=== PATIENT | male | born 1945 | race Caucasian/White ===

== ENCOUNTER 2017-03-20 09:23 | Inpatient (IN) | payer MEDICARE, OTHER ==
[2017-03-14 09:35] VITALS: BMI 29.0
--- NOTE | 2017-03-14 10:02 | PAT Medication Instructions ---
Service Date Mar 14, 2017. Current Home Medication List Ipratropium-Albuterol (Combivent Respimat), 1 PUFFS INH QID PRN for Shortness of Breath Multivitamin (Multivitamin), 1 TAB PO QAM Tiotropium Horicon (Spiriva Respimat), 1 PUFF INH BID Medication Instructions For Your Scheduled Surgery - Hold the following medications the morning of surgery: Multivitamin (Multivitamin), 1 TAB PO QAM - Take the following medications the morning of surgery with a sip of water: Tiotropium Horicon (Spiriva Respimat), 1 PUFF INH BID Ipratropium-Albuterol (Combivent Respimat), 1 PUFFS INH QID PRN for Shortness of Breath (BRING WITH YOU TO THE HOSPITAL THE MORNING OF THE SURGERY) - Take the following medications as scheduled the night before surgery: Tiotropium Horicon (Spiriva Respimat), 1 PUFF INH BID If you have any questions please call us at [phone] or [phone] or [phone]
--- NOTE | 2017-03-14 10:58 | DIAGNOSTIC IMAGING REPORT ---
CHEST PREADMISSION(PA/LAT) HISTORY: Preop. COMPARISON: None. FINDINGS: No pneumothorax. Small left pleural effusion. Left pleural calcifications. The heart is normal in size. Diffuse reticulonodular interstitial thickening. This is likely chronic. Surgical clips at the base of the neck. IMPRESSION: 1. Small left pleural effusion. 2. Diffuse reticulonodular interstitial thickening, left greater than right. This may be chronic. Comparison to old studies would be helpful. 3. Left pleural calcifications. Electronically signed by: Jatin Castillo M.D. 03/14/2017 10:57 AM Dictated Date/Time: 03/14/2017 10:55 AM
[2017-03-14 11:10] LABS: BASO % 0.7 %; BASO ABS # 0.07 K/uL (0-0.2); COMPLETE YES; EOS % 3.9 %; HEMATOCRIT 50.8 % (42-52); IG% 0.3 %; LYMPH % 18.7 %; LYMPH ABS # 1.95 K/uL (1.2-3.4); MEAN CELL VOLUME 89.1 fL (80-100); MEAN CORPUSCULAR HEMOGLOBIN 29.5 pg (25-34); MEAN CORPUSCULAR HGB CONC 33.1 g/dl (32-36); MEAN PLATELET VOLUME 10.7 fL (7.4-10.4); MONO % 7.6 %; NEUT % 68.8 %; PLATELET COUNT 288 K/uL (130-400); WHITE BLOOD COUNT 10.45 K/uL (4.8-10.8)
[2017-03-14 11:13] LABS: URINE APPEARANCE CLEAR (CLEAR); URINE BILIRUBIN NEG (NEG); URINE COLOR YELLOW; URINE NITRITE NEG (NEG); URINE PH 5.5 (4.5-7.5); URINE SPECIFIC GRAVITY 1.016 (1.000-1.030); UROBILINOGEN NEG (NEG); ZZUR CULT IF INDIC CLEAN CATCH NO
[2017-03-14 11:15] LABS: MANUAL MICROSCOPIC REQUIRED? NO; REVIEW REQ? NO
[2017-03-14 11:21] LABS: BUN/CREATININE RATIO 17.5 (10-20); CREATININE 0.76 mg/dl (0.60-1.40); POTASSIUM 4.8 mmol/L (3.5-5.1)
[2017-03-14 11:23] LABS: INR 0.9 (0.9-1.1); PARTIAL THROMBOPLASTIN RATIO 1.1; PROTHROMBIN TIME (PATIENT) 10.1 SECONDS (9.0-12.0)
--- NOTE | 2017-03-19 10:29 | HISTORY & PHYSICAL EXAMINATION ---
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 After failing attempts at conservative management including physical therapy, anti-inflammatories, relative rest, activity modification, presents for left total knee arthroplasty. He has a varus alignment, subchondral sclerosis, osteophyte formation and tricompartmental degenerative joint disease. PAST MEDICAL HISTORY: Significant for emphysema, chronic cough. He denies history of hypertension or hypercholesterolemia. PAST SURGICAL HISTORY: Significant for tonsillectomy, appendectomy, thyroidectomy, bilateral knee arthroscopies, and right total knee arthroplasty. ALLERGIES: None. MEDICATIONS: Include Spiriva 2.5 mcg twice daily, Combivent 20 mcg 2-4 times daily. FAMILY HISTORY: Otherwise unremarkable and noncontributory. SOCIAL HISTORY: The patient denies history of alcohol use, smoking or recreational drug use. PMH Otherwise unremarkable. See history of present illness for pertinent positives. PHYSICAL EXAMINATION: GENERAL: Reveals a very pleasant 71-year-old white male with severe endstage DJD of his left knee and presents for left total knee arthroplasty. He has already undergone successful right total knee arthroplasty. HEENT: Otherwise unremarkable, atraumatic, normocephalic. HEART: Regular at 74 beats per minute. LUNGS: Clear without rales, rhonchi, or wheezes noted. ABDOMEN: Soft, nontender, nondistended. Bowel sounds are present in all 4 quadrants. RECTAL: No rectal examination was performed. MUSCULOSKELETAL: Consists that a severe end-stage tricompartmental degenerative joint disease, nonresponsive to conservative therapy. IMPRESSION AND PLAN: The patient presents for total knee arthroplasty, postoperative pain management, DVT prophylaxis and postoperative pain management. MTDD
[~2017-03-20] VITALS: Ht 177.8 cm; Wt 92.8 kg
[2017-03-20] VITALS (7 sets, daily range): BP systolic 137–173; BP diastolic 68–91; PULSE 58–76; TEMP 36.3–36.8; O2SAT 95–98; Ht 177.8 cm; Wt 92.8 kg
--- NOTE | 2017-03-20 06:59 | History & Physical Bridge Note ---
H&P Re-Evaluation Bridge Note: I have examined the patient, reviewed the History & Physical and in the interval since the performance of the History & Physical I have noted the following changes of clinical significance: No changes noted
[~2017-03-20 09:23] MED LIST: BUPIVACAINE 0.25% 30 ML VIAL ONE; BUPIVACAINE 0.5 % 5 MG/1 ML PF 10ML VIAL ONE; CEFAZOLIN 2000 MG/60 ML D5W 60 ML IV SCH; IPRA1AER2 INH; LACTATED RINGER'S 1000ML IV SCH; MULT-506 PO; ROPIVACAINE 5MG/ML 30 ML 150 MG, BUPIVACAINE/EPINEPHR 0.5% MPF 30 ML, KETOROLAC TROMETH... INFIL SCH; TIOT1SPR INH
[2017-03-20] MEDS ORDERED: PROPOFOL IV EMULSION 10 MG/ML 20 ML VIAL IV ONE (10:07)
[2017-03-20] MEDS ORDERED: MIDAZOLAM HCL 1 MG/ML 2ML VIAL ONE ×2 (10:07→14:06)
[2017-03-20] MEDS ORDERED: LIDOCAINE HCL 2% 2 ML VIAL (20MG/ML) ONE (10:07)
[2017-03-20] MEDS ORDERED: FENTANYL CITRATE INJ 50 MCG/1 ML 2 ML VIAL ONE (10:07)
[2017-03-20] MEDS ORDERED: NURSING VERBAL MED ORDER STA (10:16)
[2017-03-20] MEDS ORDERED: BACITRACIN 50000 UNIT VIAL ONE (11:09)
[2017-03-20] MEDS ORDERED: POVIDONE-IODINE OP SOLN 30 ML BTL ONE (11:09)
[2017-03-20] MEDS ORDERED: ORTHO JOINT ANESTHETIC ONE (11:09)
[2017-03-20] MEDS ORDERED: EpHEDrine SULFATE INJ 50 MG/ML AMP IV PRN (11:15)
[2017-03-20] MEDS ORDERED: ATROPINE SULFATE 0.1 MG/ML 5ML SYR IV PRN (11:15)
[2017-03-20] MEDS ORDERED: KETOROLAC TROMETHAMINE 30 MG/ML VIAL IV. PRN (11:15)
[2017-03-20] MEDS ORDERED: PHENYLEPHRINE 100MCG/ML 5ML SYR IV PRN (11:15)
[2017-03-20] MEDS ORDERED: ONDANSETRON INJ 2 MG/ML 2 ML VIAL IV PRN ×2 (11:15→13:15)
[2017-03-20] MEDS ORDERED: HYDROmorphone INJ 2 MG/ML SYR/VIAL IV PRN (11:15)
[2017-03-20] MEDS: TRANEXAMIC ACID INJ 1,000 MG in SODIUM CHLORIDE 0.9% 100ML 100 ML IV SCH ×2 (11:17→15:04)
--- NOTE | 2017-03-20 12:39 | [facility] Operative Report ---
Operative Report Operative Date Mar 20, 2017. Pre-Operative Diagnosis Left Knee End-Stage Degenerative Joint Disease Post-Operative Diagnosis Left Knee End-Stage Degenerative Joint Disease Procedure(s) Performed Left Total Knee Arthroplasty utilizing Funez & Nephew journey 2 nonlocked total knee arthroplasty size 8 femur 7 tibia 11 Leighann 38 oval patella Surgeon Grover Diver Tender Surgeon(s) Jose Luis Becerril PA-C Estimated Blood Loss 5cc Findings Severe end-stage DJD left knee with varus alignment osteophyte formation subchondral cysts Specimens A: Left Knee Bone and Tissue Complication(s) None Disposition Recovery Room / PACU Indications Patient's failed attempts at conservative management including physical therapy anti-inflammatories relative rest activity modification presents for total knee arthroplasty thorough discussion regarding risk and complications Description of Procedure After proper prepping and draping of the left lower extremity anterior midline incision was made over the region of the extensor extensor mechanism after meticulous hemostasis was obtained and maintained in subcutaneous tissues a medial parapatellar incision was made The patella was subluxed lateralward the medial lateral gutter were cleaned from any hypertrophic synovitis and scar tissue of the distal femoral block was placed and the distal femoral osteotomy cut was made subsequently the chamfers anterior and posterior osteotomy cuts were made utilizing the 4-in-1 block the tibia was subsequently subluxed anteriorward medial and ateral meniscal remnants were excised in their entirety remnants of the anterior and posterior cruciate ligaments were excised in their entirety excellent exposure of the proximal tibia was obtained the tibial osteotomy guide was placed on the proximal tibial osteotomy cut was made once again the knee was irrigated with copious amounts of sterile saline solution the patella was subsequently everted lateralward thickened scar tissue around the patella was removed the patella was subsequently cut utilizing a freehand technique and was drilled prepared for final preparation and placement of patella socially flexion-extension gaps were checked and the equal and symmetric trials were placed to the appropriate femoral and tibial trials with poly-spacer being placed for equal flexion and extension gaps and full range of motion including extension to 0 and flexion to 140 the trial components after having been taken to recovery range of motion was subsequently removed meticulous hemostasis was obtained and maintained subsequently a knee block injection of joint cocktail including ropivacaine 0.5% 150 mg. Bupivacaine 0.5 % epinephrine 1-200,030 mL's toradol 30 mg dexamethasone 4 mg ketamine 10 mg clonidine 100 micrograms normal saline solution 30 mg was infiltrated into the soft tissues of the posterior knee medial lateral gutters and periosteal synovium special attention was paid to protect neurovascular structures at all times subsequently trial components having been removed the knee was irrigated with sterile saline solution. debris was removed the proximal tibia was subsequently prepared and was made ready for the placement of the tibial component tibial component was also cemented and tamped into position the femoral component was subsequently placed and cemented in the position the patellar component was subsequently cemented in position because hemostasis once again obtained and maintained wound having been thoroughly irrigated with debridement and debridement lavage was performed as well as a medial parapatellar incision closed with #1 Vicryl in interrupted fashion subcutaneous was closed with #2 Vicryl skin was closed with skin clips. PA-C was necessary for prepping and drapping as well as wound closure of deep fascia Sub cutaneous tissue and skin and was necessary for the case. A sterile compressive dressing was placed patient was taken to recovery in stable condition of report dictated by Grover I attest to the content of the Intraoperative Record and any orders documented therein. Any exceptions are noted below. I attest to the content of the Intraoperative Record and any orders documented therein. Any exceptions are noted below.
[2017-03-20] MEDS ORDERED: TRAMADOL HCL 50 MG TAB PO PRN (13:15)
[2017-03-20] MEDS ORDERED: MAGNESIUM HYDROXIDE SUSP 30 ML UDC PO PRN (13:15)
[2017-03-20] MEDS ORDERED: ALUMINUM/MAGNESIUM/SIMETH (MAALOX MAX) 30 ML UDC PO PRN (13:15)
[2017-03-20] MEDS ORDERED: MoRPHine SULFATE 2 MG/ML CARP IV PRN (13:15)
[2017-03-20] MEDS ORDERED: ZOLPIDEM TARTRATE 5 MG TAB PO PRN (13:15)
[2017-03-20] MEDS ORDERED: SOD PHOSPHATE/SOD BIPHOSPHATE ENEMA 132 ML BTL PR PRN (13:15)
[2017-03-20] MEDS ORDERED: BISACODYL 10 MG SUPP PR PRN (13:15)
[2017-03-20] MEDS ORDERED: MoRPHine SULFATE 4 MG/ML 1 ML CARP\\VIAL IV PRN (13:45)
[2017-03-20] MEDS ORDERED: MoRPHine SULFATE 10 MG/ML CARP/VIAL IV PRN (13:45)
--- NOTE | 2017-03-20 13:52 | DIAGNOSTIC IMAGING REPORT ---
LEFT KNEE 2 VIEWS History: Left total knee arthroplasty. Degenerative arthritis. Postop. FINDINGS: The patient is status post a left total knee arthroplasty. The hardware is intact. No fracture or dislocation. Surgical drains are in place. IMPRESSION: Left total knee arthroplasty. No evidence for hardware complication. Electronically signed by: Jatin Castillo M.D. 03/20/2017 1:51 PM Dictated Date/Time: 03/20/2017 1:50 PM
[2017-03-20] MEDS ORDERED: KETOROLAC TROMETHAMINE 15 MG/ML VIAL IV. PRN (14:00)
--- NOTE | 2017-03-20 14:24 | Anesthesiology Progress Note ---
Anesthesia Post Op Note Date & Time Mar 20, 2017 at 14:24 Vital Signs Pain Intensity: 0 Vital Signs Past 12 Hours Date Time Temp Pulse Resp B/P (MAP) Pulse Ox O2 Delivery O2 Flow Rate FiO2 03/20/17 13:55 36.9 72 16 133/72 96 Nasal Cannula 2 03/20/17 13:45 36.9 65 16 134/78 97 Nasal Cannula 2 03/20/17 13:35 36.9 74 16 123/72 100 Nasal Cannula 2 03/20/17 13:25 67 16 139/76 100 Oxymask 10 03/20/17 13:15 36.5 81 16 134/73 96 Oxymask 10 03/20/17 09:50 36.8 76 20 173/91 97 Room Air Notes Mental Status: alert / awake / arousable, participated in evaluation Pt Amnestic to Procedure: Yes Nausea / Vomiting: adequately controlled Pain: adequately controlled Airway Patency, RR, SpO2: stable & adequate BP & HR: stable & adequate Hydration State: stable & adequate Anesthetic Complications: no major complications apparent
[2017-03-20] MEDS: D5W AND 1/2NSS + 20MEQ KCL 1,000 ML IV SCH (15:33)
[2017-03-20] MEDS: ACETAMINOPHEN 500 MG TAB PO SCH ×2 (15:33→22:17)
[2017-03-20] MEDS: TIOTROPIUM BROMIDE INH SCH (19:48)
[2017-03-20] MEDS: CEFAZOLIN IV 2,000 MG in DEXTROSE 5% 50ML 50 ML IV SCH (20:44)
[2017-03-20] MEDS: ASPIRIN 81 MG ECTAB PO SCH (20:44)
[2017-03-20] MEDS: DOCUSATE SODIUM 100 MG CAP PO SCH (20:45)
[2017-03-20] MEDS: SENNA 8.6 MG TAB PO SCH (20:45)
[2017-03-20] MEDS ORDERED: TIOTROPIUM BROMIDE INH SCH (21:00)
[2017-03-21] VITALS (8 sets, daily range): BP systolic 134–152; BP diastolic 74–86; PULSE 67–120; TEMP 36.4–37.1; O2SAT 96–98
[2017-03-21] MEDS: IPRATROPIUM BROMIDE/ALBUTEROL respimat INH INH PRN ×3 (00:15→23:49)
[2017-03-21] MEDS: D5W AND 1/2NSS + 20MEQ KCL 1,000 ML IV SCH ×2 (00:25→11:10)
[2017-03-21] MEDS: CEFAZOLIN IV 2,000 MG in DEXTROSE 5% 50ML 50 ML IV SCH (04:05)
[2017-03-21] MEDS: ACETAMINOPHEN 500 MG TAB PO SCH ×3 (05:57→21:44)
[2017-03-21] MEDS ORDERED: LACTATED RINGER'S 500 ML IV SCH (06:00)
[2017-03-21 06:45] LABS: HEMATOCRIT 39.4 % (42-52); MEAN CELL VOLUME 87.2 fL (80-100); MEAN CORPUSCULAR HEMOGLOBIN 30.3 pg (25-34); MEAN CORPUSCULAR HGB CONC 34.8 g/dl (32-36); MEAN PLATELET VOLUME 10.6 fL (7.4-10.4); PLATELET COUNT 235 K/uL (130-400); RED BLOOD COUNT 4.52 M/uL (4.7-6.1); WHITE BLOOD COUNT 18.94 K/uL (4.8-10.8)
[2017-03-21 06:52] LABS: PROTHROMBIN TIME (PATIENT) 10.5 SECONDS (9.0-12.0)
[2017-03-21 07:16] LABS: CALCIUM 8.5 mg/dl (8.5-10.1); CREATININE 0.88 mg/dl (0.60-1.40); POTASSIUM 4.4 mmol/L (3.5-5.1)
--- NOTE | 2017-03-21 08:12 | Orthopedic Progress Note ---
Orthopedic Progress Note Date of Service Mar 21, 2017. Subjective Post OP Day: 1 Reports: feeling well, pain controlled w PO medications, Denies: complaints, chest pain, SOB, nausea / vomiting, light headedness, calf pain Objective calves soft nontender, N/V intact, capillary refill less than 2 sec., incision C /D/I, A&O x3, toes mobile had a fair amount of bloody drainage onto COLTON wrap, dressing removed, incision is clean and dry, no active bleeding, drain site clean and dry. Date Time Temp Pulse Resp B/P (MAP) Pulse Ox O2 Delivery O2 Flow Rate FiO2 03/21/17 07:42 36.8 77 20 145/86 (105) 96 Room Air 03/21/17 04:09 36.5 67 16 136/78 (97) 97 Room Air 03/20/17 23:30 Room Air 03/20/17 23:10 36.4 70 16 147/78 (101) 96 Room Air 03/20/17 17:15 36.4 71 18 157/83 (107) 95 Room Air 03/20/17 16:15 36.3 62 18 156/81 (106) 95 Room Air 03/20/17 15:32 Room Air 03/20/17 15:15 36.4 58 18 158/89 (112) 95 Room Air 03/20/17 14:45 62 18 137/68 (91) 03/20/17 14:15 98 Nasal Cannula 2.0 03/20/17 14:15 36.6 72 16 145/76 (99) 98 Nasal Cannula 2.0 03/20/17 13:55 36.9 72 16 133/72 96 Nasal Cannula 2 03/20/17 13:45 36.9 65 16 134/78 97 Nasal Cannula 2 03/20/17 13:35 36.9 74 16 123/72 100 Nasal Cannula 2 03/20/17 13:25 67 16 139/76 100 Oxymask 10 03/20/17 13:15 36.5 81 16 134/73 96 Oxymask 10 03/20/17 09:50 36.8 76 20 173/91 97 Room Air Laboratory Results 24 Hours: Test 03/21/17 06:23 Hematocrit 39.4 % Hemoglobin 13.7 g/dL Prothromb Time International Ratio 1.0 Prothrombin Time 10.5 SECONDS Assessment & Plan Assessment: POD #1 s/p Left TKA PT/OT dvt proph with seven/scd/asa plan for OPPT when stable, likely tomorrow dressing changed today due to bloody drainage, incision clean and dry Discharge Planning Discharge Planning: home with oppt DVT Prophylaxis: TEDs, SCDs, ASA Therapy: Physical Therapy
--- NOTE | 2017-03-21 08:20 | Discharge Instructions ---
Discharge Instructions Date of Service Mar 21, 2017. Admission Reason for Admission: Left Knee Osteoarthritis Discharge Discharge Diagnosis / Problem: left total knee replacement Discharge Goals Goal(s): Decrease discomfort, Improve function, Increase independence Activity Recommendations Activity Limitations: as noted below Weightbearing Status: Left weightbearing (as tolerated) . Instructions / Follow-Up Instructions / Follow-Up ACTIVITY RECOMMENDATIONS: SELF CARE INSTRUCTIONS AFTER TOTAL KNEE REPLACEMENT A. You may need to continue a physical therapy program after discharge from the hospital. There are several options available to you. Your doctor will assist you in selecting the best one for you. 1. An out-patient facility 2 to 3 times a week for therapy or home therapy. 2. Continue working on all exercises taught to you in the hospital. Your goals should be to increase bending of your knee to 90 degrees and beyond and to fully straighten your knee. B. You may progress at your own pace from walking with a walker or crutches to a cane; then to no assistive devices. C. Make walking a part of your daily routine. Be up as much as comfortable with rest periods throughout the day. Rest with leg elevation is very important. Use the ice wrap frequently for the first 3-4 weeks. D. There are no restrictions on activities. You may ride in a car, shop, participate in direct mail manager and all social activities. E. Wear the long elastic stockings (LONA hose) 20 hours a day for 2 weeks after surgery. They can be removed several times a day for laundering and for a bath. F. You may shower, no tub baths until cleared by your doctor. SPECIAL CARE INSTRUCTIONS: VERY IMPORTANT TO READ AND REVIEW A. There are a few signs you need to watch for after you are home. Call [facility] if you notice any of the followin. Increased severe knee pain. Some pain is expected especially when you exercise. 2. Increased swelling in your leg or knee; pain or swelling of the calf muscle in either lower leg. 3. Any fluid drainage from the incision. 4. Shortness of breath or chest pain. B. Please call [facility] at if you have any concerns or questions about your operation or recovery. The doctor or his nurse will return your call promptly. C. You must take antibiotics before dental work, bladder, bowel or other surgery. Your doctor will provide you with a permanent care to carry describing this precaution. IMPORTANT: * REMEMBER TO TAKE ASPIRIN, 81 MG, TWICE DAILY FOR 4 WEEKS UNLESS OTHERWISE DIRECTED. THIS IS YOUR BLOOD THINNER. * HIGH RISK PATIENTS MAY BE PRESCRIBED A STRONGER BLOOD THINNER. THIS WILL BE PROVIDED AT DISCHARGE. * CALL IF INCREASED PAIN, REDNESS, DRAINAGE OR FEVER GREATER THAT 101. * WEAR LONA HOSE 20 HOURS PER DAY FOR 2 WEEKS. * DERMABOND Prineo- This is a mesh tape dressing that is covered with glue. It should remain in place until the incision is properly healed, usually 10-14 days. This dressing is designed to naturally slough off. You may trim the excess mesh tape as it peels off. Incision may be briefly wet in a shower. Dry immediately by blotting with a clean, dry towel. Do not bath or swim until instructed by your doctor. Do not scratch, rub, or pick at the dressing. Do not apply any topical ointments or lotions until dressing is completely removed and/or instructed by your doctor. There may be a small piece of suture material at one end of your incision. Do not pull or trim this. If it is bothersome or catching on clothing, you may cover it with a band-aid. FOLLOW UP VISIT: If appointment is not already scheduled: Please call [facility] to make a follow-up appointment for 2 weeks after your surgery at . Current Hospital Diet Patient's current hospital diet: Regular Diet Discharge Diet Recommended Diet: Regular Diet Procedures Procedures Performed: Left Total Knee Arthroplasty utilizing Funez & Nephew journey 2 nonlocked total knee arthroplasty size 8 femur 7 tibia 11 Leighann 38 oval patella Pending Studies Studies pending at discharge: no Laboratory Results Hemoglobin A1c Test 03/14/17 10:16 Range/Units Estimated Average Glucose 120 mg/dl Hemoglobin A1c 5.8 H 4.5-5.6 % Medical Emergencies . Who to Call and When: Medical Emergencies: If at any time you feel your situation is an emergency, please call 911 immediately. . Non-Emergent Contact Non-Emergency issues call your: Primary Care Provider, Surgeon . "Provider Documentation" section prepared by Jose Luis Becerril. . VTE Core Measure Inpt VTE Proph given/why not?: Other Anticoagulation (ASA 81mg po bid x 1 month ), T.E.Rios Fowler, SCD's [place] Drug Monitoring Program Search Results: patient reviewed within database, no issues identified
[2017-03-21] MEDS: TIOTROPIUM BROMIDE INH SCH ×2 (08:30→17:06)
[2017-03-21] MEDS: MULTIVITAMIN TAB PO SCH (08:31)
[2017-03-21] MEDS: DOCUSATE SODIUM 100 MG CAP PO SCH ×2 (08:31→21:44)
[2017-03-21] MEDS: ASPIRIN 81 MG ECTAB PO SCH ×2 (08:31→21:44)
[2017-03-21] MEDS: PANTOprazole SOD 40 MG TAB PO SCH (08:32)
[2017-03-21] MEDS: OXYCODONE HCL IR 5 MG TAB (IMMEDIATE RELEASE) PO PRN ×2 (12:48→20:06)
--- NOTE | 2017-03-21 13:35 | Anesthesiology Progress Note ---
Anesthesia Post Op Note Date & Time Mar 21, 2017 at 13:34 Vital Signs Vital Signs Past 12 Hours Date Time Temp Pulse Resp B/P (MAP) Pulse Ox O2 Delivery O2 Flow Rate FiO2 03/21/17 13:29 109 03/21/17 12:14 113 03/21/17 12:03 36.4 120 18 152/74 (100) 96 Room Air 03/21/17 07:42 36.8 77 20 145/86 (105) 96 Room Air 03/21/17 07:30 Room Air 03/21/17 04:09 36.5 67 16 136/78 (97) 97 Room Air Notes Mental Status: alert / awake / arousable, participated in evaluation Pt Amnestic to Procedure: Yes Nausea / Vomiting: adequately controlled Pain: adequately controlled Airway Patency, RR, SpO2: stable & adequate BP & HR: stable & adequate Hydration State: stable & adequate Anesthetic Complications: no major complications apparent
--- NOTE | 2017-03-21 14:28 | Medical Consult ---
Consultation Date of Consultation: Mar 21, 2017. Attending Physician: Caleb eNss D.O. Reason for Consultation: Tachycardia History of Present Illness Patient is a pleasant 71 y/o male, with PMHx of COPD, s/p L TKA by Dr. Ness on 03/20. Hospitalist team was consulted due to tachycardia. Patient denies any complaints at this point. Currently pain is 2/10, but notes pain was severe this AM. He worked with PT w/out significant difficulty. He denies any cardiac history. He denies DM, HTN, or HLD. Denies h/o TIA/CVA, DVT/PE. Denies any chest pain, SOB. He has had multiple surgical procedures in the past w/out any complications. He is planning to go home at discharge- hoping for tomorrow. He has been eating/drinking OK postop. +flatus/BM postop. Patient denies any fever , chills, sweats, lightheadedness, dizziness, vision changes, CP, palpitations, edema, SOB, wheezing, cough, abdominal pain, nausea, vomiting, diarrhea, urinary symptoms, melena, numbness/tingling, weakness, anxiety/depression, active bleeding, or new skin discoloration/changes. Past Medical/Surgical History Past Medical History: COPD Surgical History: Tonsillectomy appendectomy thyroidectomy bilateral knee arthroscope R TKA Family History Noncontributory Social History Smoking Status: Former Smoker Marital Status: Housing Status: lives with family Allergies Coded Allergies: No Known Allergies (Unverified , 03/20/17) Home Medications Reported Home Medications Medications Dose Route/Sig Max Daily Dose Days Date Category Combivent Respimat (Ipratropium-Albuterol) 1 Aer Aer 1 Puffs INH QID PRN 03/14/17 Reported Spiriva Respimat (Tiotropium Rhame) 2.5 Mcg/Act Spr 1 Puff INH BID 03/14/17 Reported Multivitamin (Multivitamins) Tab 1 Tab PO QAM 03/14/17 Reported Current Inpatient Medications Current Inpatient Medications Medications (Trade) Dose Ordered Sig/Mina Route Start Time Stop Time Status Last Admin Dose Admin Potassium Chloride/Dextrose/ Sod Cl 1,000 ml @ 100 mls/hr Q10H IV 03/20/17 15:00 03/21/17 14:59 03/21/17 11:10 100 MLS/HR Celecoxib (CeleBREX CAP) 200 mg BID PO 03/21/17 21:00 04/20/17 20:59 Oxycodone HCl (Roxicodone Immediate Rel Tab) 1 TABLET FOR PAIN RATING... Q4H PRN PO 03/20/17 13:15 04/03/17 13:14 03/21/17 12:48 10 MG Acetaminophen (Tylenol Tab) 1,000 mg Q8 PO 03/20/17 15:00 04/19/17 14:59 03/21/17 13:27 1,000 MG Magnesium Hydroxide (Milk Of Magnesia Susp) 30 ml Q6H PRN PO 03/20/17 13:15 04/19/17 13:14 Bisacodyl (Dulcolax Supp) 10 mg DAILY PRN WI 03/20/17 13:15 04/19/17 13:14 Sodium Biphosphate/ Sodium Phosphate (Fleet Enema) 132 ml DAILY PRN WI 03/20/17 13:15 04/19/17 13:14 Senna (Senokot Tab) 17.2 mg HS PO 03/20/17 21:00 04/19/17 20:59 03/20/17 20:45 17.2 MG Docusate Sodium (coLACE CAP) 100 mg BID PO 03/20/17 21:00 04/19/17 20:59 03/21/17 08:31 100 MG Diphenhydramine HCl (Benadryl Cap) 25 mg Q8H PRN PO 03/20/17 13:15 04/19/17 13:14 Al Hydrox/Mg Hydrox/Simethicone (Maalox Max Susp) 15 ml Q4H PRN PO 03/20/17 13:15 04/19/17 13:14 Zolpidem Tartrate (Ambien Tab) 5 mg HSZ PRN PO 03/20/17 13:15 04/19/17 13:14 Multivitamins (Multivitamin Tab) 1 tab QAM PO 03/21/17 09:00 04/20/17 08:59 03/21/17 08:31 1 TAB Ondansetron HCl (Zofran Inj) 4 mg Q6H PRN IV 03/20/17 13:15 04/19/17 13:14 Pantoprazole Sodium (Protonix Tab) 40 mg QAM PO 03/21/17 09:00 04/20/17 08:59 03/21/17 08:32 40 MG Tramadol HCl (Ultram Tab) 1 tablet for pain rating... Q4H PRN PO 03/20/17 13:15 04/19/17 13:14 Aspirin (Ecotrin Tab) 81 mg BID PO 03/20/17 21:00 04/19/17 20:59 03/21/17 08:31 81 MG Albuterol/ Ipratropium (Combivent Respimat Inh) 1 puffs QID PRN INH 03/20/17 13:15 04/19/17 13:14 03/21/17 13:26 1 PUFFS Morphine Sulfate (MoRPHine SULFATE INJ) 2 mg Q4HWA PRN IV 03/20/17 13:15 04/03/17 13:14 Morphine Sulfate (MoRPHine SULFATE INJ) 4 mg Q4HWA PRN IV 03/20/17 13:45 04/03/17 13:44 Morphine Sulfate (MoRPHine SULFATE INJ) 6 mg Q4HWA PRN IV 03/20/17 13:45 04/03/17 13:44 Tiotropium Rhame (Spiriva Handihaler Inhaler) 1 puff BID@0900,1700 INH 03/20/17 19:45 04/19/17 19:44 03/21/17 08:30 1 PUFF Physical Exam Date Time Temp Pulse Resp B/P (MAP) Pulse Ox O2 Delivery O2 Flow Rate FiO2 03/21/17 13:29 109 03/21/17 12:14 113 03/21/17 12:03 36.4 120 18 152/74 (100) 96 Room Air 03/21/17 07:42 36.8 77 20 145/86 (105) 96 Room Air 03/21/17 07:30 Room Air 03/21/17 04:09 36.5 67 16 136/78 (97) 97 Room Air 03/20/17 23:30 Room Air 03/20/17 23:10 36.4 70 16 147/78 (101) 96 Room Air 03/20/17 17:15 36.4 71 18 157/83 (107) 95 Room Air 03/20/17 16:15 36.3 62 18 156/81 (106) 95 Room Air 03/20/17 15:32 Room Air 03/20/17 15:15 36.4 58 18 158/89 (112) 95 Room Air 03/20/17 14:45 62 18 137/68 (91) 03/20/17 14:15 98 Nasal Cannula 2.0 03/20/17 14:15 36.6 72 16 145/76 (99) 98 Nasal Cannula 2.0 General Appearance: no apparent distress Head: normocephalic, atraumatic Eyes: PERRL ENT: hearing grossly normal Neck: supple Respiratory/Chest: lungs clear, no respiratory distress, no accessory muscle use Cardiovascular: regular rate, rhythm Abdomen/GI: normal bowel sounds, non tender, soft Back: normal inspection Extremities/Musculoskelatal: no calf tenderness, no pedal edema Neurologic/Psych: alert, normal mood/affect, oriented x 3 Skin: normal color, warm/dry, no rash Laboratory Results Last 24 Hours Test 03/21/17 06:23 White Blood Count 18.94 K/uL Red Blood Count 4.52 M/uL Hemoglobin 13.7 g/dL Hematocrit 39.4 % Mean Corpuscular Volume 87.2 fL Mean Corpuscular Hemoglobin 30.3 pg Mean Corpuscular Hemoglobin Concent 34.8 g/dl RDW Standard Deviation 41.3 fL RDW Coefficient of Variation 12.9 % Platelet Count 235 K/uL Mean Platelet Volume 10.6 fL Prothrombin Time 10.5 SECONDS Prothromb Time International Ratio 1.0 Sodium Level 140 mmol/L Potassium Level 4.4 mmol/L Chloride Level 110 mmol/L Carbon Dioxide Level 22 mmol/L Anion Gap 8.0 mmol/L Blood Urea Nitrogen 14 mg/dl Creatinine 0.88 mg/dl Est Creatinine Clear Calc Drug Dose 90.7 ml/min Estimated GFR () 101.6 Estimated GFR (Non- 87.6 BUN/Creatinine Ratio 16.0 Random Glucose 123 mg/dl Calcium Level 8.5 mg/dl Assessment & Plan Patient is a pleasant 71 y/o male, with PMHx of COPD, s/p L TKA by Dr. Ness on 03/20. Hospitalist team was consulted due to tachycardia. Tachycardia, likely secondary to pain response: - Continue ortho pain management regimen - Will recheck H&H now - Continue IVF - EKG reviewed, low likelihood for ACS- no s/s of chest pain, SOB, nausea, diaphoresis; no cardiac history - Low likelihood for PE- no s/s of pleuritic chest pain, cough, SOB - Leukocytosis, likely secondary to postop response/IV steroid- no s/s of infection s/p L TKA by Dr. Ness on 03/20: - Surgical management, pain management, PT/OT, and DVT prophylaxis as per primary team - Follow postop CBC and PRP - Encourage incentive spirometer COPD: Continue Spiriva and Combivent GI prophylaxis: Protonix 40 mg daily DVT prophylaxis: ASA BID per surgical team Code Status: LEVEL I, FULL Dispo: Discharge as per primary team Thank you for this consultation. We will continue to follow. .Attending Addendum: I have physically seen this patient, have directed the physician assistants medical activities, and agree with the H&P as noted above with the following exceptions as noted. Assessment and Plan: Status post left total knee arthroplasty on 03/[address] Ness-- Consult made due to increased heart rate. Sinus tachycardia--noted on EKG Likely secondary to pain response Hemoglobin and electrolytes are within range. Continue IV fluids. COPD-- Continue Spiriva and Combivent
[2017-03-21 15:32] LABS: HEMATOCRIT 36.3 % (42-52)
[2017-03-21] MEDS: CeleBREX 200 MG CAP PO SCH (21:44)
[2017-03-21] MEDS: SENNA 8.6 MG TAB PO SCH (21:45)
[2017-03-22] MEDS: ACETAMINOPHEN 500 MG TAB PO SCH (05:22)
[2017-03-22 07:00] VITALS: BP 138/78; PULSE 80; TEMP 36.8; O2SAT 95
--- NOTE | 2017-03-22 07:26 | Orthopedic Progress Note ---
Orthopedic Progress Note Date of Service Mar 22, 2017. Subjective Post OP Day: 2 Reports: feeling well, pain controlled w PO medications, Denies: complaints, chest pain, SOB, nausea / vomiting, light headedness, calf pain Objective calves soft nontender, N/V intact, capillary refill less than 2 sec., incision C /D/I, A&O x3, toes mobile Date Time Temp Pulse Resp B/P (MAP) Pulse Ox O2 Delivery O2 Flow Rate FiO2 03/21/17 23:35 37.0 87 17 144/78 (100) 98 Room Air 03/21/17 23:30 Room Air 03/21/17 15:40 100 03/21/17 15:40 Room Air 03/21/17 15:00 37.1 105 18 134/77 (96) 97 Room Air 03/21/17 13:29 109 03/21/17 12:14 113 03/21/17 12:03 36.4 120 18 152/74 (100) 96 Room Air 03/21/17 07:42 36.8 77 20 145/86 (105) 96 Room Air 03/21/17 07:30 Room Air Laboratory Results 24 Hours: Test 03/21/17 15:19 Hematocrit 36.3 % Hemoglobin 12.7 g/dL Assessment & Plan Assessment: POD #2 s/p Left TKA PT/OT dvt proph with seven/scd/asa plan for OPPT when stable, likely after PT today post-op Tachy, EKG ordered, appreciate medical eval, low likelyhood of ACS, will cont to observe. Discharge Planning Discharge Planning: home with oppt DVT Prophylaxis: TEDs, SCDs, ASA Therapy: Physical Therapy
[2017-03-22] MEDS ORDERED: ASPEC81 PO (07:28)
[2017-03-22] MEDS ORDERED: CLC100 PO (07:28)
[2017-03-22] MEDS ORDERED: RXC5 PO (07:28)
[2017-03-22] MEDS ORDERED: ACET-24 PO (07:28)
[2017-03-22] MEDS ORDERED: CLB200 PO (07:28)
[2017-03-22] MEDS ORDERED: ULT50X PO (07:28)
[2017-03-22] MEDS ORDERED: ONDA8TAB6 PO (07:28)
--- NOTE | 2017-03-22 08:02 | Discharge Summary ---
Orthopedic Discharge Summary Admission Date/Reason Mar 20, 2017 at 13:18 Left Knee Osteoarthritis. Discharge Date/Disposition Mar 22, 2017 Home with services Diagnosis Principal Diagnosis: left knee osteoarthritis Procedure(s) Performed Left Total Knee Arthroplasty utilizing [employer] 2 nonlocked total knee arthroplasty size 8 femur 7 tibia 11 Leighann 38 oval patella Consultations [facility]- tachycardia Medication Reconciliation New Medications: Ondansetron Hcl (Zofran) 8 Mg Tab 8 MG PO Q8 PRN for Nausea, #20 TAB Acetaminophen (Sb Non-Aspirin Extra Stre) 500 Mg Tab 1000 MG PO Q8, #126 TAB Aspirin (Aspirin EC Low Dose) 81 Mg Ectab 81 MG PO BID for 30 Days, #60 TAB Celecoxib (Celebrex) 200 Mg Cap 200 MG PO BID for 30 Days, #60 CAP Docusate Sodium (Docusate Sodium) 100 Mg Cap 100 MG PO BID for 10 Days, #20 CAP Oxycodone HCl (Oxycodone HCl) 5 Mg Tab 5-10 MG PO Q4H PRN for Pain, #60 TAB Tramadol HCl (Tramadol HCl) 50 Mg Tab 50-100 MG PO Q4H PRN for Pain, #60 TAB Continued Medications: Ipratropium-Albuterol (Combivent Respimat) 1 Aer Aer 1 PUFFS INH QID PRN for Shortness of Breath, INH Multivitamin (Multivitamin) Tab 1 TAB PO QAM, TAB Tiotropium Schriever (Spiriva Respimat) 2.5 Mcg/Act Spr 1 PUFF INH BID, INHALER Admission Physical Exam As per Admitting History & Physical. Discharge Instructions Patient was a same day admission after undergoing a successful left TKA. he tolerated the procedure well. Post-operatively, his activity was progressed and well tolerated. Please refer to daily progress notes and PT notes for complete details. He was noted to be tachycardic at times post op, therefore an EKG was ordered and medicine was consulted. after workup, they felt no s/s of ACS, he was not having CP, SOB, or other symptoms. After exam on 03/22/17, patient felt to be stable for discharge home with HHPT. Patient will f/u in the office in 2 weeks for further evaluation including x-rays and incision check, sooner if having any issues or concerns. Below are pertinent labs/studies during their hospital stay: Last Resulted CBC 03/21/17 06:23 03/21/17 15:19 Last Resulted BMP 03/21/17 06:23 Last Vital Signs Documentation Date Time Temp Pulse Resp B/P (MAP) Pulse Ox O2 Delivery O2 Flow Rate FiO2 03/22/17 07:15 Room Air 03/21/17 23:35 37.0 87 17 144/78 (100) 98 03/20/17 14:15 2.0
[2017-03-22] MEDS: PANTOprazole SOD 40 MG TAB PO SCH (08:24)
[2017-03-22] MEDS: MULTIVITAMIN TAB PO SCH (08:24)
[2017-03-22] MEDS: TIOTROPIUM BROMIDE INH SCH (08:25)
--- NOTE | 2017-03-22 08:48 | Progress Note ---
Subjective Date of Service: Mar 22, 2017. Subjective Pt evaluation today including: conversation w/ patient, physical exam, chart review, lab review, review of studies, conversation w/ beverage sales consultant, review of inpatient medication list Doing okay, eating breakfast, denied chest pain tachycardia, denied any complaint Review of Systems Constitutional: No fever, No chills, No sweats, No weight loss, No weakness, No fatigue, No problem reported Eyes: No worsening of vision, No eye pain, No redness, No discharge, No diplopia ENT: No hearing loss, No unusual epistaxis, No nasal symptoms, No sore throat, No tinnitus, No dental problems, No trouble swallowing Respiratory: No cough, No sputum, No wheezing, No shortness of breath, No dyspnea on exertion, No dyspnea at rest, No hemoptysis Cardiac: No chest pain, No orthopnea, No PND, No edema, No claudication, No palpitations Abdomen: No pain, No nausea, No vomiting, No diarrhea, No constipation Musculoskeletal: No joint pain, No muscle pain, No swelling, No calf pain Male : No dysuria, No urinary frequency, No incontinence, No nocturia more than once/night, No slowing stream, No hematuria Neurologic: No memory loss, No paralysis, No weakness, No numbness/tingling, No vertigo, No balance problems Psychiatric: No depression symptoms, No anhedonism, No anxiety, No insomnia, No substance abuse Heme: No abnormal bleeding/bruising, No clotting problems, No swollen lymph nodes, No night sweats Endo: No fatigue, No excessive thirst, No excessive urination Skin: No rash, No itch, No new/changing skin lesions, No color change, No bleeding Objective Vital Signs Date Time Temp Pulse Resp B/P (MAP) Pulse Ox O2 Delivery O2 Flow Rate FiO2 03/22/17 07:15 Room Air 03/22/17 07:00 36.8 80 16 138/78 (98) 95 Room Air 03/21/17 23:35 37.0 87 17 144/78 (100) 98 Room Air 03/21/17 23:30 Room Air 03/21/17 15:40 100 03/21/17 15:40 Room Air 03/21/17 15:00 37.1 105 18 134/77 (96) 97 Room Air 03/21/17 13:29 109 03/21/17 12:14 113 03/21/17 12:03 36.4 120 18 152/74 (100) 96 Room Air Physical Exam General Appearance: WD/WN, no apparent distress Eyes: normal inspection, PERRL, EOMI, sclerae normal ENT: normal ENT inspection, hearing grossly normal, pharynx normal Neck: supple, no adenopathy, thyroid normal, no JVD, no carotid bruits, trachea midline Respiratory/Chest: chest non-tender, lungs clear, normal breath sounds, no respiratory distress, no accessory muscle use Cardiovascular: regular rate, rhythm, no edema, no gallop, no JVD, no murmur Abdomen: normal bowel sounds, non tender, soft, no organomegaly, no pulsatile mass Extremities: non-tender, normal inspection, no pedal edema, no calf tenderness , normal capillary refill, pelvis stable, + pertinent finding (left anterior knee incision looks good) Neurologic/Psychiatric: linotyper II-XII nml as tested, no motor/sensory deficits, alert, normal mood/affect, oriented x 3 Skin: normal color, warm/dry, no rash Lymphatic: no adenopathy Laboratory Results Last 24 Hours Test 03/21/17 15:19 03/22/17 08:03 Hemoglobin 12.7 g/dL Hematocrit 36.3 % Assessment and Plan 71 y/o male, with PMHx of COPD, s/p L TKA by Dr. Ness on 03/20/2017. Hospitalist team was consulted due to tachycardia yesterday Tachycardia, likely secondary to pain response, totally resolved, , patient general condition looks good, no fever and chill , there is leukocytosis, will repeat lab this morning Continue ortho pain management regimen EKG reviewed, low likelihood for ACS- no s/s of chest pain, SOB, nausea, diaphoresis; no cardiac history Low likelihood for PE- no s/s of desaturation , pleuritic chest pain, cough, SOB s/p L TKA by Dr. Ness on 03/20: Surgical management, pain management, PT/OT, and DVT prophylaxis as per primary team, Encourage incentive spirometer COPD: Continue Spiriva and Combivent GI prophylaxis: Protonix 40 mg daily DVT prophylaxis: ASA BID per surgical team Code Status: LEVEL I, FULL Dispo: Discharge as per primary team Continued [facility] stay due to: other (per primary team) Discharge planning: home
[2017-03-22] MEDS: DOCUSATE SODIUM 100 MG CAP PO SCH (08:51)
[2017-03-22] MEDS: CeleBREX 200 MG CAP PO SCH (08:52)
[2017-03-22] MEDS: ASPIRIN 81 MG ECTAB PO SCH (08:52)
[2017-03-22] MEDS: OXYCODONE HCL IR 5 MG TAB (IMMEDIATE RELEASE) PO PRN (08:54)
[2017-03-22 08:59] LABS: BASO % 0.4 %; BASO ABS # 0.07 K/uL (0-0.2); COMPLETE YES; EOS % 4.1 %; HEMATOCRIT 33.6 % (42-52); IG% 0.3 %; LYMPH % 13.1 %; LYMPH ABS # 2.25 K/uL (1.2-3.4); MEAN CORPUSCULAR HEMOGLOBIN 30.8 pg (25-34); MEAN CORPUSCULAR HGB CONC 35.4 g/dl (32-36); MEAN PLATELET VOLUME 10.4 fL (7.4-10.4); MONO % 11.4 %; NEUT % 70.7 %; PLATELET COUNT 194 K/uL (130-400); RED BLOOD COUNT 3.86 M/uL (4.7-6.1); WHITE BLOOD COUNT 17.19 K/uL (4.8-10.8)
[2017-03-22 09:20] VITALS: BP 138/78; PULSE 80; TEMP 36.8; O2SAT 95
== END 2017-03-22 11:34 | disposition home or self-care (01) | DRG 470 ==
LOC: C.ACU 09:23 → C.3E 13:18 → ENRESERV 13:59
PROVIDERS: ADMIT Orthopaedic Surgery; ATTEND Orthopaedic Surgery
PROC: 0SRD0J9 Replacement of Left Knee Joint with Synthetic Substitute, Cemented, Open Approach (ICD-10-PCS; principal; 2017-03-20 11:45)
DX: M17.12 Unilateral primary osteoarthritis, left knee (principal); R00.0 Tachycardia, unspecified; J44.9 Chronic obstructive pulmonary disease, unspecified; Z87.891 Personal history of nicotine dependence